=== PATIENT | female | born 2000 | race African-American/Black ===

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

== ENCOUNTER 2021-04-22 11:37 | Emergency (ER) | payer SELFPAY ==
[~2021-04-22] VITALS: Ht 162.6 cm; Wt 70.4 kg
[~2021-04-22 11:37] MED LIST: IBUP800T19 PO; OXYC1TAB7 PO
[2021-04-22 11:43] VITALS: BP 136/72
--- NOTE | 2021-04-22 12:09 | PHYS DOC ---
Past Medical History Past Medical History: Bipolar (PADMINI WOMACK Rosita [employer]OUR[employer]) Past Surgical History: No Surgical History Additional Past Surgical Histo: HERNIA REPAIR (PADMINI WOMACK Rosita [employer]OUR[employer]) Smoking Status: Never Smoker Alcohol Use: Occasionally Drug Use: None (PADMINI WOMACK Rosita [employer]OURNEY[employer]) General Adult EDM: Chief Complaint: Congestion HPI: HPI: Patient is a 21 year old female who presents to the ED today complaining of cough, nasal congestion, symptoms for 2 days. Patient denies any fever. Patient is also complaining of left eye redness drainage, symptoms began this morning. She states she woke up and her left eye was crusted shut. (PADMINI WOMACK JOURNEY[employer] OPER[employer]) Review of Systems: Review of Systems: Constitutional: Denies fever or chills. [] Eyes: Reports left eye redness, drainage. Denies change in visual acuity. [] HENT: Reports nasal congestion, denies sore throat. [] Respiratory: Reports cough, denies shortness of breath. [] Cardiovascular: Denies chest pain or edema. [] GI: Denies abdominal pain, nausea, vomiting, bloody stools or diarrhea. [] : Denies dysuria. [] Musculoskeletal: Denies back pain or joint pain. [] Integument: Denies rash. [] Neurologic: Denies headache, focal weakness or sensory changes. [] Psychiatric: Denies depression or anxiety. [] (PADMINI WOMACK Rosita [employer]PER[employer]) Heart Score: C/O Chest Pain: N/A Risk Factors: Risk Factors: DM, Current or recent (<one month) smoker, HTN, HLP, family history of CAD, obesity. Risk Scores: Score 0 - 3: 2.5% MACE over next 6 weeks - Discharge Home Score 4 - 6: 20.3% MACE over next 6 weeks - Admit for Clinical Observation Score 7 - 10: 72.7% MACE over next 6 weeks - Early Invasive Strategies (AMELIAPADMINI Appiah [employer]) Allergies: Allergies: Allergies Coded Allergies Type Severity Reaction Last Updated Verified No Known Drug Allergies 09/20/17 No (AMELIAPADMINI Appiah [employer]) Physical Exam: PE: Constitutional: Well developed, well nourished, no acute distress, non-toxic appearance. [] HENT: Normocephalic, atraumatic, bilateral external ears normal, oropharynx moist, no oral exudates, nose normal. [] Eyes: PERRLA, EOMI, left upper eyelid at around 10 o'clock position with an isolated area of redness, patient denies any trauma sneezing or vomiting. She wears contact lenses. No drainage noted. Neck: Normal range of motion, no tenderness, supple, no stridor. [] Cardiovascular:Heart rate regular rhythm, no murmur [] Lungs & Thorax: Bilateral breath sounds clear to auscultation [] Abdomen: Bowel sounds normal, soft, no tenderness, no masses, no pulsatile masses. [] Skin: Warm, dry, no erythema, no rash. [] Back: No tenderness, no CVA tenderness. [] Extremities: No tenderness, no cyanosis, no clubbing, ROM intact, no edema. [] Neurologic: Alert and oriented X 3, normal motor function, normal sensory function, no focal deficits noted. [] Psychologic: Affect normal, judgement normal, mood normal. [] (PADMINI WOMACK APRN) Current Patient Data: Vital Signs: Vital Signs Date Time Temp Pulse Resp B/P (MAP) Pulse Ox O2 Delivery O2 Flow Rate FiO2 04/22/21 11:43 98.1 96 17 136/72 (93) 100 Room Air 98.1 (PADMINI WOMACK APRN) EKG: EKG: [] (PADMINI WOMACK APRN) Radiology/Procedures: Radiology/Procedures: [] (PADMINI WOMACK APRN) Course & Med Decision Making: Course & Med Decision Making Pertinent Labs and Imaging studies reviewed. (See chart for details) This a 22-year-old female patient with upper respiratory infection and back bacterial conjunctivitis. Will be discharged with Tessalon Perles, and Mucinex for the upper respiratory infection and ofloxacin for left bacterial conjunctivitis. Follow-up with PCP in 1 week (PADMINI WOMACK APRN) Trell Disclaimer: Trell Disclaimer: This electronic medical record was generated, in whole or in part, using a voice recognition dictation system. (PADMINI WOMACK APRN) Departure Departure Impression: Primary Impression: URI (upper respiratory infection) Qualified Codes: J06.9 - Acute upper respiratory infection, unspecified Additional Impressions: Bacterial conjunctivitis of left eye Cough Disposition: HOME / SELF CARE / HOMELESS Condition: STABLE Referrals: UNKNOWN PCP NAME (PCP) MARIJA ALARCON MD Follow-up with your doctor or the provided eye doctor next week Patient Instructions: Bacterial Conjunctivitis, [id number], Upper Respiratory Infection, Adult, [id number] Additional Instructions: Happy Birthday today!!! Please follow-up with the provided bottom ironer or your own eye doctor in 1 week. Use the prescribed medications as ordered. Scripts Guaifenesin/Dextromethorphan (MUCINEX DM ER 600-30 MG TABLET) 1 Each Tab.er.12h 1 TAB PO PRN BID PRN for cough and congestion for 7 Days, #28 TAB 0 Refills Prov: PADMINI WOMACK APRN 04/22/21 Benzonatate (TESSALON PERLE) 100 Mg Capsule 1 CAP PO TID, #30 CAP Prov: PADMINI WOMACK APRN 04/22/21 Ofloxacin (Ofloxacin) 5 Ml Drops 1 DROP LEFTEYE QID, #5 ML 0 Refills Prov: PADMINI WOMACK APRN 04/22/21 Attending Signature Attending Signature I have reviewed the PA/WINCH RUNNER's note and plan of care. I was available for consultation as needed during the patient's visit in the emergency department. I agree with the clinical impression, plan, and disposition. (AKIN DEUTSCH DO) PADMINI WOMACK APRN Apr 22, 2021 12:09 AKIN DEUTSCH DO Apr 22, 2021 17:41
[2021-04-22] MEDS ORDERED: OFLO5DRO4 LEFTEYE (12:13)
[2021-04-22] MEDS ORDERED: BENZ100C PO (12:14)
[2021-04-22] MEDS ORDERED: GUAI-108 PO (12:14)
== END 2021-04-22 12:21 | disposition home or self-care (01) ==
LOC: ER 11:37
DX: J06.9 Acute upper respiratory infection, unspecified (principal); H10.89 Other conjunctivitis; R05.9 Cough, unspecified; F31.9 Bipolar disorder, unspecified
CPT/HCPCS: 99283